=== PATIENT | female | born 2000 | race African-American/Black ===

== ENCOUNTER 2024-01-08 11:06 | Emergency (ER) | payer MEDICAID ==
[~2024-01-08] VITALS: Ht 167.6 cm; Wt 98.1 kg
[2024-01-08 13:22] LABS: Urine Bacteria None Seen /hpf (None Seen); Urine WBC None Seen /hpf (0 - 5)
[2024-01-08 14:15] LABS: Urine Amorphous Crystal FEW /hpf (None Seen); Urine Blood TRACE /uL (Negative); Urine Clarity Ex.Turbid (Clear); Urine Color Light-Orange (Yellow); Urine Mucus FEW (None Seen); Urine Protein, UAD 1+ (Negative); Urine Specific Gravity 1.029 (1.001-1.035); Urine Urobilinogen Normal (Negative); Urine pH 5.5 (5.0-9.0)
[2024-01-08] MEDS ORDERED: NITR-87 PO (14:42)
[2024-01-08 14:47] VITALS: BP 113/74; PULSE 99; RESP 12; TEMP 99.6; O2SAT 96
== END 2024-01-08 14:49 | disposition home or self-care (01) ==
LOC: ER 11:06
DX: N30.90 Cystitis, unspecified without hematuria (principal); Z79.899 Other long term (current) drug therapy
CPT/HCPCS: 81001; 81025

== ENCOUNTER 2024-02-14 14:39 | Emergency (ER) | payer MEDICAID ==
[~2024-02-14] VITALS: Ht 167.6 cm; Wt 98.0 kg
[~2024-02-14 14:39] MED LIST: NITR-87 PO
[2024-02-14 15:58] LABS: Urine Bacteria FEW /hpf (None Seen); Urine Blood Negative /uL (Negative); Urine Clarity Turbid (Clear); Urine Color Yellow (Yellow); Urine Mucus FEW (None Seen); Urine Protein, UAD 1+ (Negative); Urine Specific Gravity 1.037 (1.001-1.035); Urine Urobilinogen Normal (Negative); Urine WBC 27 /hpf (0 - 5); Urine pH 5.5 (5.0-9.0)
[2024-02-14 16:19] VITALS: BP 130/87; PULSE 81; RESP 16; TEMP 98.4; O2SAT 96
[2024-02-14] MEDS ORDERED: CEPH500C PO (16:26)
[2024-02-14] MEDS ORDERED: PHEN-922 PO (16:26)
[2024-02-14] MEDS: cefTRIAXone SOD 1,000 MG VL IM ONE (16:36)
== END 2024-02-14 17:01 | disposition home or self-care (01) ==
LOC: ER 14:39
DX: O23.41 Unspecified infection of urinary tract in pregnancy, first trimester (principal); N39.0 Urinary tract infection, site not specified; Z3A.01 Less than 8 weeks gestation of pregnancy; Z88.0 Allergy status to penicillin; Z88.1 Allergy status to other antibiotic agents
CPT/HCPCS: 81001; 96372; 99283; J0696

== ENCOUNTER 2024-07-18 15:57 | Observation (INO) | payer MEDICAID ==
[~2024-07-18 15:57] MED LIST changes: +CEPH500C PO; +PHEN-922 PO
[2024-07-18 16:48] LABS: Fern Testing Negative
--- NOTE | 2024-07-18 17:07 | DVH ---
LIMITED OB ULTRASOUND > 14 WKS: HISTORY: BIBA pre-eclampsia, ptl TECHNIQUE: Multiple real-time grayscale images of the gravid uterus with duplex Doppler color flow an d M-mode spectral analysis. TRANSDUCER: Transabdominal FINDINGS: IUP single live fetus at 29 weeks 4 days based on composite averages of the BPD, head circumference, abdominal circumference and femur length Estimated weight 1473 grams heart rate 147 beats per minute RUSSELL 15.65 cm Cervix appears closed and measures 3.04 cm long. Breech Presentation Grade grade 1 Placenta without previa or abruption. IMPRESSION: 1. Single live fetus at 29 weeks 4 days with normal estimated weight , heart rate , and amnioti c fluid index . 2. Cervix closed and measures 3.04 cm long . 3. Breech presentation , grade 1 . 4. Placenta appears normal . 5. EFW: 1473 g
--- NOTE | 2024-07-18 17:08 | DVHDS2 ---
Physician Discharge Progress N Final Diagnosis: IUP 29 wk, false labor SROM ruled out Chronic HTN Prior C/Section Operations or Procedures: Operations or Procedures Labor check, not in labor SROM ruled out, fern neg, RUSSELL 15cm Cx length > 3cm TOCO: no contractions EFM: Category 1 FHR (reactive NST) Commentary: Commentary BP controlled on Labetalol, asymptomatic NOT pre-eclampsia (CHTN) Condition on Discharge: Stable Disposition: Home Discharge Instructions: Diet: Regular Activity: Light activity Follow Up/Referral: F/U within 1 week w/ Primary OB MD Medications: No new meds Follow Up Care: Discharge Statement: "Patient was advised to return to the ER or call 911 if any headaches, dizziness, shortness of breath, chest pain, abdominal pain, bleeding, fevers, or worsening of medical condition. Patient was counseled about treatment plan, medications, possible side effects, patientverbalized understanding. All questions were answered to the best of my ability. This discharge took greater then 30 minutes in planning, reviewing documentation, counseling the patient, and discussing with other team members." JAMES CHANEL DO Jul 18, 2024 17:08
[2024-07-18] MEDS ORDERED: LABE100T7 PO (17:10)
[2024-07-18] MEDS ORDERED: PREN-96 PO (17:11)
== END 2024-07-18 17:43 | disposition home or self-care (01) ==
LOC: LDRP 15:57
PROVIDERS: ADMIT Obstetrics & Gynecology; ATTEND Obstetrics & Gynecology
DX: O47.03 False labor before 37 completed weeks of gestation, third trimester (principal); O13.3 Gestational [pregnancy-induced] hypertension without significant proteinuria, third trimester; Z3A.29 29 weeks gestation of pregnancy; Z88.0 Allergy status to penicillin; Z98.891 History of uterine scar from previous surgery; Z79.899 Other long term (current) drug therapy
CPT/HCPCS: 59025; 76805; 81002; G0378; Q0114

== ENCOUNTER 2024-07-22 07:39 | Observation (INO) | payer MEDICAID ==
[~2024-07-22 07:39] MED LIST changes: +LABE100T7 PO; +PREN-96 PO
--- NOTE | 2024-07-22 08:32 | DVH ---
LIMITED OB ULTRASOUND > 14 WKS: HISTORY: decreased FM and s/p fall TECHNIQUE: Multiple real-time grayscale images of the gravid uterus with duplex Doppler color flow an d M-mode spectral analysis. TRANSDUCER: Transabdominal COMPARISON: US OB ULTRASOUND COMP GTR 14 WKS on DOS: 07/18/24 FINDINGS/IMPRESSION: heart rate 124 beats per minute RUSSLEL 15.6 cm Cervix is closed and measures 3.1 cm. Cephalic Presentation Anterior Placenta without previa or abruption.
--- NOTE | 2024-07-22 18:51 | DVHDS2 ---
Physician Discharge Progress N Final Diagnosis: wellbeing established Operations or Procedures: Operations or Procedures S: 24yo IUP@30.0wks presents to OB triage with c/o DFM and fell last night at [facility] but denies abdominal trauma. Pt gets PNC at [place], complicated by PIH and hx of C/S wants to this time. Denies UCs/LOF/VB/WALLACE/vision changes/RUQ pain. Endorses +FM. O: VSS, normotensive UA wnl NST reactive (verified by 2 RNs) A: 24yo IUP@30.0wks wellbeing established P: kick counts and Preeclampsia warning signs reviewed. PTL precautions given and when to return to the hospital. Other Interventions Other Interventions [place] [address] Ph: [phone] DIAGNOSTIC IMAGING Diagnostic Imaging Report : [id number] Signed PATIENT: FARHEEN CHAPARRO ACCT: [id number] UNIT: [id number] : 2000 LOC: [facility] ROOM / BED: TRIAGE1 / A AGE / SEX: 24 / F ADM STATUS: ADM IN SERVICE 8 ORDERING PHYSICIAN: NICOLA SHAW CNM PROCEDURE(s): OBLTD - OBSTERICAL LIMITED REASON: decreased FM and s/p fall ORDER NUMBER(s): [id number], ACCESSION NUMBER(s): [id number] LIMITED OB ULTRASOUND > 14 WKS: HISTORY: decreased FM and s/p fall TECHNIQUE: Multiple real-time grayscale images of the gravid uterus with duplex Doppler color flow and M-mode spectral analysis. TRANSDUCER: Transabdominal COMPARISON: US OB ULTRASOUND COMP GTR 14 WKS on DOS: 07/18/24 FINDINGS/IMPRESSION: heart rate 124 beats per minute RUSSELL 15.6 cm Cervix is closed and measures 3.1 cm. Cephalic Presentation Anterior Placenta without previa or abruption. ATED BY: PAWEL FORD MD DICTATED DATE/TIME: 07/22/24828 SIGNED BY: PAWEL FORD MD SIGNED DATE/TIME: 07/22/24828 CC: Condition on Discharge: Stable Disposition: Home Discharge Instructions: Diet: Regular Activity: No Restrictions, As Tolerated Medications: see med list Follow Up Care: Specialist: F/U with OB provider at [facility] as scheduled on 07/30/24 Discharge Statement: "Patient was advised to return to the ER or call 911 if any headaches, dizziness, shortness of breath, chest pain, abdominal pain, bleeding, fevers, or worsening of medical condition. Patient was counseled about treatment plan, medications, possible side effects, patientverbalized understanding. All questions were answered to the best of my ability. This discharge took greater then 30 minutes in planning, reviewing documentation, counseling the patient, and discussing with other team members." NICOLA SHAW CNM Jul 22, 2024 18:51
== END 2024-07-22 09:20 | disposition home or self-care (01) ==
LOC: LDRP 07:39
PROVIDERS: ADMIT Obstetrics & Gynecology; ATTEND Obstetrics & Gynecology
DX: O36.8130 Decreased fetal movements, third trimester, not applicable or unspecified (principal); O13.3 Gestational [pregnancy-induced] hypertension without significant proteinuria, third trimester; W18.39XA Other fall on same level, initial encounter; Y93.89 Activity, other specified; Y92.89 Other specified places as the place of occurrence of the external cause; Y99.8 Other external cause status; Z3A.30 30 weeks gestation of pregnancy; Z79.899 Other long term (current) drug therapy; Z98.890 Other specified postprocedural states
CPT/HCPCS: 59025; 76815; 81002; G0378

== ENCOUNTER 2024-08-07 19:02 | Observation (INO) | payer MEDICAID ==
[2024-08-07 20:09] LABS: Urine Bacteria FEW /hpf (None Seen); Urine Blood Negative /uL (Negative); Urine Clarity Turbid (Clear); Urine Color Yellow (Yellow); Urine Hyaline Cast FEW /lpf (0 - 2); Urine Mucus FEW (None Seen); Urine Protein, UAD 1+ (Negative); Urine Specific Gravity 1.027 (1.001-1.035); Urine Urobilinogen Normal (Negative); Urine WBC 1 /hpf (0 - 5); Urine pH 5.5 (5.0-9.0)
[2024-08-07 20:10] LABS: Fern Testing Negative
--- NOTE | 2024-08-08 07:29 | DVHDS2 ---
Physician Discharge Progress N Final Diagnosis: rom ruled out Operations or Procedures: Operations or Procedures nst,sono Condition on Discharge: Good Disposition: Home Discharge Instructions: Diet: Cardiac 2g Na,low cholest Activity: Light activity Medications: na Follow Up Care: Specialist: 2d with ob Discharge Statement: "Patient was advised to return to the ER or call 911 if any headaches, dizziness, shortness of breath, chest pain, abdominal pain, bleeding, fevers, or worsening of medical condition. Patient was counseled about treatment plan, medications, possible side effects, patientverbalized understanding. All questions were answered to the best of my ability. This discharge took greater then 30 minutes in planning, reviewing documentatio n, counseling the patient, and discussing with other team members." PRETTY NEWBERRY DO Aug 08, 2024 07:29
== END 2024-08-07 20:35 | disposition home or self-care (01) ==
LOC: LDRP 19:02
PROVIDERS: ADMIT Obstetrics & Gynecology; ATTEND Obstetrics & Gynecology
DX: O26.893 Other specified pregnancy related conditions, third trimester (principal); N89.8 Other specified noninflammatory disorders of vagina; R03.0 Elevated blood-pressure reading, without diagnosis of hypertension; R10.9 Unspecified abdominal pain; R20.2 Paresthesia of skin; R20.0 Anesthesia of skin; O42.913 Preterm premature rupture of membranes, unspecified as to length of time between rupture and onset of labor, third trimester; Z3A.32 32 weeks gestation of pregnancy; Z88.0 Allergy status to penicillin; Z88.1 Allergy status to other antibiotic agents
CPT/HCPCS: 59025; 81002; 94760; G0378

== ENCOUNTER 2024-09-13 09:12 | Emergency (ER) | payer MEDICAID ==
[~2024-09-13] VITALS: Ht 167.6 cm; Wt 97.4 kg
--- NOTE | 2024-09-13 10:09 | ED.PDOC ---
SOB-HPI HPI Comments A 24 YEAR OLD FEMALE PRESENTS TO THE ED WITH CHIEF COMPLAINT OF COUGH. PATIENT REPORTS THAT SHE HAS BEEN EXPERIENCING A COUGH WITH ASSOCIATED SORE THROAT, NASAL CONGESTION, AND BODY ACHE FOR THE PAST 2 DAYS. PATIENT RELAYS THAT SHE HAS HISTORY OF ASTHMA. PATIENT DENIES ANY DIZZINESS, CHEST PAIN, SOB, HEADACHE, N/V/D, OR FEVER. Chief Complaint: Flu like Time Seen by MD: 10:04 Primary Care Provider: [facility] Reviewed notes: Nurses Notes, Medications, Allergies Information Source: Patient Mode of Arrival: Ambulatory Severity: Moderate Timing: Days Duration: Since onset Context: At Rest PE Risk Factors: None History of: Asthma Prehospital treatment: None Modifying Factors: Nothing Associated Signs and Symptoms: Cough, Nasal Congestion, Sore Throat, Other (BODY ACHE) If cough with SOB: Non-Productive Past Medical History PAST MEDICAL HISTORY: Asthma Surgical History: Denies all surgeries PROFESSIONAL MODEL History: No Pertinent PROFESSIONAL MODEL History Family History Family History: Reviewed,noncontributory to illness Social History Smoker: Non-Smoker Alcohol: Denies ETOH Use Drugs: Denies Drug Use Lives In: Home Constitutional: reports: others (BODY ACHES); denies: chills, diaphoresis, fatigue, fever, malaise, sweats, weakness EENTM: reports: nose congestion, throat pain; denies: blurred vision, double vision, ear bleeding, ear discharge, ear drainage, ear pain, ear ringing, eye pain, eye redness, hearing loss, mouth pain, mouth swelling, nasal discharge, nose bleeding, nose pain, photophobia, tearing, throat swelling, voice changes, others Respiratory: reports: cough; denies: hemoptysis, orthopnea, SOB at rest, shortness of breath, SOB with excertion, stridor, wheezing, others Cardiovascular: denies: chest pain, dizzy spells, diaphoresis, Dyspnea on exertion, edema, irregular heart beat, left arm pain, lightheadedness, palpitations, PND, syncope, others Gastrointestinal: denies: abdomen distended, abdominal pain, blood streaked bowels, constipated, diarrhea, dysphagia, difficulty swallowing, hematemesis, melena, nausea, poor appetite, poor fluid intake, rectal bleeding, rectal pain, vomiting, others Genitourinary: denies: abnormal vagina bleeding, burning, dyspareunia, dysuria, flank pain, frequency, hematuria, incontinence, pain, , vagina discharge, urgency, others Neurological: denies: dizziness, fainting, headache, left sided numbness, left sided weakness, numbness, paresthesia, pre-existing deficit, right sided numbness, right sided weakness, seizure, speech problems, tingling, tremors, weakness, others Musculoskeletal: denies: back pain, gout, joint pain, joint swelling, muscle pain, muscle stiffness, neck pain, others Integumetry: denies: bruises, change in color, change in hair/nails, dryness, laceration, lesions, lumps, rash, wounds, others Allergic/Immunocompromised: denies: Difficulty Healing, Frequent Infections, Hives, Itching, others Hematologic/Lymphatic: denies: anemia, blood clots, easy bleeding, easy bruising, swollen glands, others Endocrine: denies: excessive hunger, excessive sweating, excessive thirst, excessive urination, flushing, intolerance to cold, intolerance to heat, unexplained weight gain, unexplained weight loss, others Psychiatric: denies: anxiety, bipolar disorder, depression, hopeless, panic disorder, schizophrenia, sleepless, suicidal, others All Other Systems: Reviewed and Negative Physical Exam General Appearance: No Apparent Distress, Normal HEENT: PERRL/EOMI, Pharyngeal Erythema (NO EXUDATES. ), TMs Normal Neck: Full Range of Motion, Non-Tender, Normal, Normal Inspection Respiratory: Chest Non-Tender, Expiration, No Accessory Muscle Use, No Respiratory Distress, Wheezing (MILD ) Cardiovascular: No Edema, No JVD, No Murmur, No Gallop, Normal Peripheral Pulses, Regular Rate/Rhythm Breast Exam: Deferred Gastrointestinal: No Organomegaly, Non Tender, No Pulsatile Mass, Normal Bowel Sounds, Soft Genitalia: Deferred Pelvic: Deferred Rectal: Deferred Extremities: No calf tenderness, Normal capillary refill, Normal inspection, Normal range of motion, Non-tender, No pedal edema Musculoskeletal : Apperance: Normal Neurologic: Alert, business risk consultant II-XII nml as Tested, No Motor Deficits, Normal Affect, Normal Mood, No Sensory Deficits Cerebellar Function: Normal Reflexes: Normal Skin: Dry, Normal Color, Warm Peripheral Pulses: 2+ carotid (R), 2+ carotid (L) Lymphatic: No Adenopathy Was a procedure done? Was a procedure done?: No Differential Dx Differential Diagnosis: Asthma, Bronchitis, Allergic Rhinitis, Pharyngitis, URI X-Ray, Labs, Meds, VS Vital Signs Date Time Temp Pulse Resp B/P (MAP) Pulse Ox O2 Delivery O2 Flow Rate FiO2 09/13/24 10:38 98.9 76 16 140/86 (104) 94 98.9 09/13/24 10:38 76 16 94 Room Air 09/13/24 10:32 18 96 Room Air* 0 21 09/13/24 09:30 98.7 78 16 143/90 (107) 94 Current Medications Medications (Trade) Dose Ordered Sig/Rubén Route Start Time Stop Time Status Last Admin Albuterol (Ventolin Medneb) 2.5 mg ONCE ONCE NEB 09/13/24 10:15 09/13/24 10:16 DC 09/13/24 10:32 Ipratropium [place] (Atrovent Medneb) 0.5 mg ONCE ONCE NEB 09/13/24 10:15 09/13/24 10:16 DC 09/13/24 10:32 X-Ray, Labs, Meds, VS Comment EXTERNAL MEDICAL RECORDS REVIEWED: 02/14/24 FOR UTI INDEPENDENT HISTORIANS: [NONE] SOCIAL DETERMINANTS OF HEALTH: [NONE] LABS ORDERED: NONE REVIEWED AND INTERPRETED RESULTS: NONE IMAGING ORDERED: NONE TREATMENTS ORDERED: DUONEB TREATMENT PROCEDURES PERFORMED: NONE CRITICAL CARE TIME: NONE BASED ON HISTORY OF PRESENT ILLNESS, AND PHYSICAL EXAM, PATIENT WILL BE DISCHARGED HOME. DISCUSSED PLAN FOR DISCHARGE HOME WITH RX []. MEDICATION WARNINGS GIVEN. SHARED DECISION MAKING: DISCUSSED WITH PATIENT THAT THEIR WORKUP WAS NORMAL. PATIENT INSTRUCTED TO FOLLOW UP WITH PRIMARY CARE PROVIDER IN 1-2 DAYS FOR RE- EVALUATION OF SYMPTOMS. PATIENT VERBALIZES UNDERSTANDING TO RETURN TO ED FOR NEW OR WORSENING SYMPTOMS OR IF FOLLOW UP WITH PCP CANNOT BE OBTAINED. PATIENT FEELS COMFORTABLE GOING HOME AT THIS TIME. ALL QUESTIONS ADDRESSED AT TIME OF DISCHARGE. Time of 1ST Reevaluation: 10:46 Reevaluation 1ST: Improved Patient Education/Counseling: Diagnosis, Treatment, Need For Follow Up Family Education/Counseling: Diagnosis, Treatment, Need For Follow Up Medical Screening: No EMC Exist At This Time Departure 1 Departure Time of Disposition: 11:00 Impression: Primary Impression: Acute asthma exacerbation Qualified Codes: J45.21 - Mild intermittent asthma with (acute) exacerbation Disposition: 01 HOME / SELF CARE / HOMELESS Condition: Stable Additional Instructions: FOLLOW-UP WITH PCP IN 1 TO 2 DAYS. TAKE MEDICATIONS PRESCRIBED. RETURN TO ED FOR ANY NEW OR WORSENING SYMPTOMS. e-Prescriptions Prednisone (Prednisone) 20 Mg Tab 60 MG PO DAILY, #18 TAB Prov: TATO FIORE 09/13/24 Discharged With: Self, Spouse Critical Care Note Critical Care Time?: No Stability Stability form required: No Heart Score Heart Score: Heart Score Response (Comments) Value History N/A 0 EKG N/A 0 Age N/A 0 Risk Factors N/A 0 Troponin N/A 0 Total 0 I personally scribed for TATO FIORE ([email or web address]) on 09/13/24 at 10:09. Electronically submitted by Jean Marie Marie ([email or web address]). I personally scribed for TATO FIORE ([email or web address]) on 09/13/24 at 10:37. Electronically submitted by Jean Marie Marie ([email or web address]). I personally scribed for TATO FIORE ([email or web address]) on 09/13/24 at 10:38. Electronically submitted by Jean Marie Marie ([email or web address]). TATO FIORE Sep 13, 2024 10:09
[2024-09-13] MEDS: ALBUTEROL SULF 2.5 MG/0.5ML(0.5%) NEB SOLN NEB ONE (10:32)
[2024-09-13] MEDS: IPRATROPIUM BROM 0.5 MG/2.5ML INH SOL NEB ONE (10:32)
[2024-09-13 10:38] VITALS: BP 140/86; PULSE 76; RESP 16; TEMP 98.9; O2SAT 94
[2024-09-13] MEDS ORDERED: PRED20TA2 PO (10:48)
== END 2024-09-13 11:04 | disposition home or self-care (01) ==
LOC: ER 09:12
DX: J45.901 Unspecified asthma with (acute) exacerbation (principal)
CPT/HCPCS: 94640

== ENCOUNTER 2024-12-24 13:14 | Emergency (ER) | payer MEDICAID ==
[~2024-12-24] VITALS: Ht 165.1 cm; Wt 94.2 kg
[~2024-12-24 13:14] MED LIST changes: +PRED20TA2 PO
[2024-12-24 14:17] VITALS: BP 138/86; PULSE 73; RESP 16; TEMP 98.2; O2SAT 96
[2024-12-24] MEDS ORDERED: TRAM50TA2 PO (14:28)
--- NOTE | 2024-12-24 14:28 | ED.PDOC ---
Back pain HPI HPI Comments This is a pleasant 24-year-old female with no recent trauma or injury who presents with a chief complaint of atraumatic lower back pain x3 days. Admits she had a fall in July and had a recent MRI that showed she had slipped discs. Currently she follows up with a chiropractor every two weeks and sees pain management monthly. Next appointment with a pain management is January 08. Currently complains of low back pain that worsens with lateral movements. Unable to get adequate relief with [id number] Tylenol Motrin. Denies any history of cancer Denies fevers chills night sweats nausea vomiting unintentional weight loss Denies IV drug use history of HIV/TB Denies abdominal "tearing" pain Denies syncope Denies urinary incontinence or urinary changes Denies numbness tingling of the groin or inner thigh Denies previous back procedure or surgery Chief Complaint: Back Pain Time Seen by MD: 13:27 Primary Care Provider: [facility] Reviewed Notes: Nurses Notes, Medications, Allergies Allergies: Coded Allergies: Amoxicillin (Verified Allergy, Unknown, 02/14/24) Penicillins (Verified Allergy, Unknown, 02/14/24) Home Meds Active Scripts Prednisone (Prednisone) 20 Mg Tab, 60 MG PO DAILY, #18 TAB Prov:TATO FIORE 09/13/24 Phenazopyridine HCl (Phenazopyridine Hydrochlo) 200 Mg Tab, 200 MG PO TID, #6 TAB Prov:TATO FIORE 02/14/24 Cephalexin Monohydrate (Cephalexin) 500 Mg Cap, 1 CAP PO QID, #28 CAP Prov:TATO FIORE 02/14/24 Nitrofurantoin Monohydrate Mac (Macrobid) 100 Mg Cap, 100 MG PO BID for 5 Days, #10 CAP 0 Refills Prov:WILMA GARDNER ORDER DEPARTMENT SUPERVISOR 01/08/24 Reported Medications Vit W/ Ferrous Fumara ( One Daily) Daily Tab, 1 TAB PO DAILY, #90 TAB 3 Refills 07/18/24 Labetalol Hcl (Labetalol Hcl) 100 Mg Tab, 100 MG PO BID for 30 Days, MG 07/18/24 Information Source: Patient Mode of Arrival: Ambulatory Past Medical History PAST MEDICAL HISTORY: Asthma Surgical History: Denies all surgeries CONSTRUCTION AND MAINTENANCE INSPECTOR History: No Pertinent CONSTRUCTION AND MAINTENANCE INSPECTOR History Family History Family History: Reviewed,noncontributory to illness Social History Smoker: Non-Smoker Alcohol: Denies ETOH Use Drugs: Denies Drug Use Lives In: Home All Other Systems: Reviewed and Negative (per hpi) Physical Exam General Appearance: No Apparent Distress, Normal HEENT: Normal ENT Inspection, Pharynx Normal, TMs Normal Neck: Full Range of Motion, Non-Tender, Normal, Normal Inspection Respiratory: Chest Non-Tender, Lungs Clear, No Accessory Muscle Use, No Respiratory Distress, Normal Breath Sounds Cardiovascular: No Edema, No JVD, No Murmur, No Gallop, Normal Peripheral Pulses, Regular Rate/Rhythm Breast Exam: Deferred Gastrointestinal: No Organomegaly, Non Tender, No Pulsatile Mass, Normal Bowel Sounds, Soft Genitalia: Deferred Pelvic: Deferred Rectal: Deferred Extremities: No calf tenderness, Normal capillary refill, Normal inspection, Normal range of motion, Non-tender, No pedal edema Musculoskeletal : Extremity Location: Back (No gross abnormality on inspection. No midline tenderness. No step-offs. No saddle anesthesia) Apperance: Normal Neurologic: Alert, chief architect II-XII nml as Tested, No Motor Deficits, Normal Affect, Normal Mood, No Sensory Deficits Cerebellar Function: Normal Reflexes: Normal Skin: Dry, Normal Color, Warm Lymphatic: No Adenopathy Was a procedure done? Was a procedure done?: No Back Pain Differential Dx Differential Diagnosis: Musculoskeletal Pain X-Ray, Labs, Meds, VS Vital Signs Date Time Temp Pulse Resp B/P (MAP) Pulse Ox O2 Delivery O2 Flow Rate FiO2 12/24/24 14:17 73 16 96 Room Air 12/24/24 14:17 98.2 73 16 138/86 (103) 96 98.2 12/24/24 13:57 98.2 73 16 138/86 (103) 96 98.2 X-Ray, Labs, Meds, VS Comment Presentation most consistent with nonemergent musculoskeletal etiology versus nonemergent disc herniation. Disposition: Discharge. Strict return precautions discussed with the patient with full understanding. Supportive care advised (rest, ice, heat, NSAIDs, stretching exercises) Massage muscles with cold pack or ice for 20 minutes 4 times per day. Usually most useful if there is swelling during the first 48 hours Heating pad on the most painful area for 20 minutes to relieve muscle spasm Sleep and the most comfortable sleeping position (usually on the side with knees bent) Light stretching, no strenuous activity, avoid frequent bending, avoid carrying heavy objects Discussed possible benefits of yoga and acupuncture Return precautions discussed including Inability to walk/bear weight Paresthesia/weakness/leg pain Fecal/urinary incontinence Any worsening symptoms Patient is stable for discharge at this time. External notes reviewed. Test results and diagnostic imaging interpreted. All diagnostic findings, discharge care, education and instructions provided Follow-up with PCP in 2 to 3 days Patient verbalized understanding and agreed to treatment plan Vital signs stable, afebrile, no acute distress noted Patient ambulatory with strong steady gait Advised to return precautions for any new or worsening symptoms, return to ER immediately for re-evaluation Patient is aware that the purpose of this visit was for an acute medical emergency requiring emergent stabilization. Chronic conditions, including malignancies have not been ruled out. Patient is instructed to follow up with PCP as directed and discharge instructions for continued care and workup. If unable to arrange follow-up, patient is to return to the emergency department for reassessment. Patient (parent or legal guardian if applicable) was given verbal and written discharge instructions and acknowledges understanding. Time of 1ST Reevaluation: 14:26 Reevaluation 1ST: Improved Patient Education/Counseling: Diagnosis, Treatment Family Education/Counseling: Diagnosis, Treatment Departure 1 Departure Time of Disposition: 14:27 Impression: Primary Impression: Back pain Qualified Codes: M54.50 - Low back pain, unspecified; G89.29 - Other chronic pain Disposition: 01 HOME / SELF CARE / HOMELESS Condition: Stable e-Prescriptions Tramadol Hcl (Tramadol Hcl) 50 Mg Tab 50 MG PO Q8HP PRN for 10 Days, #30 TAB 0 Refills Prov: WILMA GARDNER NP 12/24/24 Critical Care Note Critical Care Time?: No Stability Stability form required: No Heart Score Heart Score: Heart Score Response (Comments) Value History N/A 0 EKG N/A 0 Age N/A 0 Risk Factors N/A 0 Troponin N/A 0 Total 0 WILMA GARDNER NP Dec 24, 2024 14:28
[2024-12-24 14:55] LABS: Urine Bacteria FEW /hpf (None Seen); Urine Blood 3+ /uL (Negative); Urine Clarity Turbid (Clear); Urine Color Light-Yellow (Yellow); Urine Mucus FEW (None Seen); Urine Protein, UAD TRACE (Negative); Urine Specific Gravity 1.026 (1.001-1.035); Urine Squamous Epithelial Cell FEW /hpf (<5); Urine Urobilinogen Normal (Negative); Urine WBC 3 /HPF (0-5); Urine pH 5.5 (5.0-9.0)
== END 2024-12-24 14:33 | disposition home or self-care (01) ==
LOC: ER 13:22
DX: G89.29 Other chronic pain (principal); M54.50 Low back pain, unspecified; J45.909 Unspecified asthma, uncomplicated; Z79.899 Other long term (current) drug therapy; Z88.0 Allergy status to penicillin
CPT/HCPCS: 81001